=== PATIENT | male | born 1960 | race Caucasian/White ===

== ENCOUNTER 2019-05-25 14:32 | Inpatient (IN) ==
--- NOTE | 2019-05-25 17:19 | PROVIDER DOCUMENTATION ---
HPI-General Adult - General Chief Complaint: Extremity Pain Stated Complaint: LEG INFECTION-AF REFERRED Time Seen by Provider: 05/25/19 17:03 Source: patient, family Allergies/Adverse Reactions: Patient Allergies Allergy/AdvReac Type Severity Reaction Status Date / Time No Known Allergies Allergy Verified 05/25/19 16:58 Home Medications: Home Medication List Medication Instructions Recorded Confirmed Last Taken Type Warfarin [Coumadin] 5 mg PO DAILY 05/30/14 05/25/19 05/23/19 22:00 History - History of Present Illness -Gen Adult Nature of Presenting Problems: [id number] was referred by [facility] to r/o DVT of the RLE. He states that last week he cut his leg with a weed eater. On it began to itch, so he started scratching the area while at work. 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 He reports that yesterday, he noticed his leg beginning to swell. Today, he awoke with pain and swelling from the knee down to the ankle. He reports the most pain in his calf. , who is an ER nurse at , reports the patient was febrile with chills last night. She also reports a WBC of 13,000 from [facility]. Location of Pain/Injury: reports: lower extremity (right) Quality of Pain: reports: sharp Severity: reports: severe Onset/Duration: reports: 24 hours ago Timing: reports: getting worse Context/Activities at Onset: reports: recent trauma history (cut by weed eater) Associated Symptoms: reports: fever/chills Review of Systems - Adult - REVIEW OF SYSTEMS - ADULT Constitutional: reports: see HPI, chills, fever Eyes: reports: no symptoms reported Ears, Nose, Mouth & Throat: reports: no symptoms reported Cardiovascular: reports: no symptoms reported. denies: chest pain, syncope Respiratory: reports: no symptoms reported Gastrointestinal: reports: no symptoms reported Genitourinary: reports: no symptoms reported Musculoskeletal: reports: see HPI, other (RLE) Integumentary: reports: see HPI, skin sores/ulcer (RLE) Neurological: reports: no symptoms reported Psychiatric: reports: no symptoms reported Endocrine: reports: no symptoms reported Hematologic/Lymphatic: reports: no symptoms reported Allergic/Immunologic: reports: no symptoms reported All Other Systems: Reviewed and Negative Past History - Adult - PAST MEDICAL HISTORY-ADULT Review of Records: reports: Old Records Reviewed, Nursing Assessment Review, Medications Reviewed, Social history reviewed & non-contributory. Major Childhood Illnesses: reports: denies history Cardiovascular: reports: denies history Respiratory: reports: denies history Gastrointestinal: reports: denies history Obstetrical/Gynecological: reports: denies history Genitourinary: reports: denies history Musculoskeletal: reports: denies history Neurological: reports: denies history Endocrine/Immune: reports: bleeding disorder (clotting) Other Conditions: reports: denies history - PRIOR SURGERIES/PROCEDURES Surgical/Procedure History: reports: orthopedic (extremity) - IMMUNIZATION STATUS Childhood Immunizations: See Nurse Assessment Flu Vaccine: See Nurse Assessment - FAMILY HISTORY Family History: reviewed, not pertinent - SOCIAL HISTORY Smoking: denies Substance Use: denies Living Situation: family Physical Exam-General - PHYSICAL EXAM-ADULT Initial Vital Signs Reviewed: Yes - CONSTITUTIONAL General Appearance: alert, mild distress - EYES Eyes: PERRL/EOMI, pink conjunctivae - HEAD, EARS, NOSE, MOUTH & THROAT HENMT: moist mucous membranes - NECK Neck: full range of motion, supple - RESPIRATORY Respiratory: lungs clear, normal breath sounds - CARDIOVASCULAR Cardiovascular: regular rate, rhythm - LYMPHATIC Lymphatic: no adenopathy - MUSCULOSKELETAL Extremity: normal gait, erythema (RLE-calf to ankle), inflammation (calf-ankle RLE), tenderness (Calf-ankle RLE) - SKIN Integumentary: erythema (RLE), warm (RLE), other (sore to inner right ankle draining serous fluid) - NEUROLOGIC Neurologic: grossly normal - PSYCHIATRIC Psych/Mental Status: normal mood/affect, oriented x 3 Progress - PLAN OF CARE/RESULTS Progress/Plan/Lab Results: Vital Signs - 8 hr 05/25/19 14:36 Temperature 97.8 F Pulse Rate 89 Respiratory Rate 18 Blood Pressure 153/72 O2 Sat by Pulse Oximetry 95 Orders Category Date Time Status Venous U/S Left Leg Stat Ther 05/25/19 17:11 Ordered patient verbalizes an understanding of POC and agrees with treatment rendered here today. 7:00PM - received sign-out from Rush, assessed patient; CT pending at this time. Result Diagrams: 05/25/19 18:14 05/25/19 18:14 - REASSESSMENT Reassessment #1 Time Reassessed: 21:10 (CT confirms cellulitis, as well as pyomyositis. Given the patient's elevated WBC, as well as episode of fever here, the pt may require more than one dose of IV antibiotics. I discussed the case with the hospitalist, who agrees to accept the admission.) - ULTRASOUND (By Radiology) 1 US Study: Lower Ext (right) Impression: Normal - CHANGE OF SHIFT REPORT (ED Provider) 1 Report Given and Care Transferred to:: Dr Gardner Time of Transfer: 19:06 Items Pending: Labs, CT/MRI Results Departure - Departure Date of Disposition Decision: 05/25/19 Time of Disposition Decision: 22:02 DIAGNOSIS: Left leg cellulitis Disposition: ADMITTED INPATIENT 09 Certified Medical Emergency: Emergent Condition: Stable Referrals and Follow-Ups: Rey Elizalde MD [Primary Care Provider] - - Critical Care Note This patient required my direct & personal management of CC.: No Attestation - Physician/ HAYLEY Attestation Patient care was provided by Advanced Practice Provider:: Yes Advanced Practice Provider:: Rush Ritter Advanced Practice Provider documentation review:: The Mid-level provider documentation, treatment plan and medical decision making was reviewed by the physician who agrees with all treatment and medical decision making by the P. The physician spent face to face time with patient:: Yes Advanced Practice Provider documentation review:: Supervising physician onsite and consulted in the evaluation and care of this patient. The physician did have a face to face encounter with the patient.
[2019-05-25 18:35] LABS: INR 1.71; PROTIME 20.4 Seconds (11.0-16.0)
[2019-05-25 18:36] LABS: PTT 31.1 Seconds (22.3-41.8)
[2019-05-25 18:57] LABS: BASO# 0.03 X1000 (0.0-0.2); BASO% 0.2 % (0.0-0.8); EOS# 0.18 X1000 (0.0-0.7); EOS% 1.1 % (0.0-10.0); HEMATOCRIT 48.1 % (42.0-52.0); HEMOGLOBIN 16.2 g/dL (14.0-18.0); IMM GRAN# 0.06 X1000 (0.0-0.04); IMM GRAN% 0.4 % (0.0-0.5); LYMPH# 1.63 X1000 (1.2-3.4); LYMPH% 10.4 % (20.5-51.1); MCH 27.8 PG (27-31); MCHC 33.7 g/dL (33-37); MCV 82.5 FL (81-99); MPV 10.7 FL (7.4-10.4); NEUT# 11.61 X1000 (1.4-6.5); NEUT% 73.9 % (42.2-75.2); PLT 325 X1000 (130-400); RBC 5.83 XMIL (4.7-6.1); RDW 14.1 % (11.5-14.5); WBC 15.71 X1000 (4.8-10.8)
[2019-05-25] MEDS ORDERED: TYLENOL PO ONE (19:02)
[2019-05-25] MEDS ORDERED: VANCOMYCIN 1 GM/NS 1 GM/250 ML IVPB IV ONE (19:02)
[2019-05-25 19:25] LABS: AGAP 14; ALB/GLOB RATIO 1.1; ALBUMIN 4.4 g/dL (3.5-5.0); ALKALINE PHOSPHATASE 96 U/L (32-122); BUN 17 mg/dL (8-22); CALCIUM 9.5 mg/dL (8.8-10.2); CHLORIDE 96 mmol/L (98-107); COSMO 279; ESTIMATED GFR > 60; GLUCOSE 267 mg/dL (70-104); GOT 13 U/L (10-34); GPT 21 U/L (10-44); POTASSIUM 4.4 mmol/L (3.5-5.1); SODIUM 134 mmol/L (136-145); TCO2 24 mmol/L (25-35); TOTAL BILIRUBIN 0.87 mg/dL (0.20-1.00); TOTAL PROTEIN 8.5 g/dL (6.3-8.3)
--- NOTE | 2019-05-25 20:37 | Diag Imaging Result Doc PS360 ---
CT EXT LOWER RIGHT W/O CON - 05/25/2019 INDICATION: wound TECHNIQUE: CT of the lower legs COMPARISON: None FINDINGS: There is circumferential subcutaneous edema about the right lower leg. In addition, there is some intramuscular edema at the posterior medial muscle compartment involving the medial head of gastrocnemius. At the medial lower leg there is a small skin defect compatible with a wound. There are a couple of scattered soft tissue densities that are nonspecific, both in the subcutaneous and muscular tissues. There are also a few scattered densities on the left side. No fractures or bony erosions. No soft tissue gas. There is advanced osteoarthritis of the left knee. There is probably a large joint free body in the joint space anteriorly on the left side. IMPRESSION: 1. Edema of the subcutaneous tissues and the medial gastrocnemius head. This indicates cellulitis and possibly pyomyositis. No abscess or soft tissue gas. 2. No fractures. Severe osteoarthritis of the left knee. Electronically signed by Marcus Hines 05/25/2019 8:35 PM
[2019-05-25] MEDS ORDERED: ZOFRAN IV PRN (22:22)
[2019-05-25] MEDS ORDERED: VANCOMYCIN IV PER PHARMACY MISC SCH (22:30)
[2019-05-26] MEDS: ZOSYN 3.375 GM in NS 50 ML IV SCH ×4 (00:37→20:03)
[2019-05-26] MEDS: COUMADIN PO SCH ×2 (00:38→20:04)
[2019-05-26] MEDS: VANCOMYCIN 2,000 MG in NS 500 ML IV SCH ×2 (01:49→13:45)
--- NOTE | 2019-05-26 01:50 | HISTORY AND PHYSICAL ---
CHIEF COMPLAINT: Right lower extremity edema and pain. HISTORY OF PRESENT ILLNESS: The patient is a very pleasant 58-year-old male who has a known history of a sore on his right leg. States it has been there for several weeks. He has been working many more hours at work than usual. Notes that 2 days ago his right lower extremity became swollen, red and tender. States that he squeezed it until it finally popped and did have some bloody drainage. [place] better, went home. Got up the next day and went back to work. Unfortunately, it again began swelling and painful and his finally convinced him to come to the hospital today. He had he had actually gone to [facility] to rule out a DVT. He apparently had cut his leg on a weed eater last week creating the new wound. He wears tall boots and thick socks at work and he thinks this may have worsened it. ALLERGIES: No known drug allergies. MEDICATIONS: Coumadin 5 mg daily. PAST MEDICAL HISTORY: Has a known history of DVT. No other medical problems. Denies any diabetes, hypertension, high cholesterol. REVIEW OF SYSTEMS: States he has had fever in his leg but has not felt feverish elsewhere. He did have some chills, but notes that is better. Denies any cough, congestion, shortness of breath. Denies any dyspnea on exertion, PND, or orthopnea. Does have swelling bilateral lower extremities right greater than left. Has had drainage of his right lower extremity sore. He does have a sore on his ankle that has been there for several months. Denies any diarrhea, constipation, melena, hematochezia. FAMILY HISTORY: Noncontributory. SOCIAL HISTORY: He is . Does not smoke or drink. He is employed and has been working overtime lately. PHYSICAL EXAMINATION: VITAL SIGNS: Reviewed. Temperature 97.8 degrees, pulse 89, respiratory rate 18, BP 153/72, saturating 95% on room air. GENERAL: Patient is awake, alert. He is in no respiratory distress. He is very pleasant to talk with. HEENT: Normocephalic, atraumatic. VIKI. NECK: Supple. No JVD. CARDIOVASCULAR: Regular rate. No murmurs. CHEST: Clear, nonlabored. Obese. ABDOMEN: Soft, nondistended. EXTREMITIES: Moves all extremities. NEUROLOGIC: He has no focal neurologic weakness. SKIN: He is noted to have erythema on both lower extremities but much greater on his right. His right calf is sore to the touch, is definitely larger than his left calf. He is very warm. In fact, you can feel warm through his blue jeans. He has a cut on his ankle that he notes has been there for quite some time. He has been having difficulty healing it. He also has inflammation up to his calf. LABORATORIES: WBCs 15, hemoglobin and hematocrit 16 and 48. Sodium 134, glucose 267. ASSESSMENT: 1. Right lower extremity cellulitis. 2. Leukocytosis. 3. Hyperglycemia in a patient with no known history of diabetes. 4. Elevated blood pressure in the patient with no previous diagnosis of hypertension. 5. Obesity. 6. History of deep venous thrombosis. PLAN: We are going to admit patient to the hospital, place him on antibiotics, vancomycin and Rocephin. He has good pulses distally bilateral lower extremities. His CT did demonstrate cellulitis and possible pyomyositis. Certainly we will need to keep an eye on that. We are going to place him on sliding scale insulin, pattern Accu-Cheks, check an A1c, recheck his labs in the a.m. and we will follow. cc: MD Rey Buitrago MD
[2019-05-26] MEDS: TYLENOL PO PRN ×3 (03:59→17:51)
[2019-05-26] MEDS: HUMALOG SUBQ SCH ×4 (07:50→21:57)
[2019-05-26 07:52] LABS: HEMATOCRIT 40.1 % (42.0-52.0); HEMOGLOBIN 13.5 g/dL (14.0-18.0); MCH 28.1 PG (27-31); MCHC 33.7 g/dL (33-37); MCV 83.5 FL (81-99); MPV 11.1 FL (7.4-10.4); RBC 4.8 XMIL (4.7-6.1); WBC 14.37 X1000 (4.8-10.8)
[2019-05-26] MEDS ORDERED: FLU VACCINE IM ONE (08:05)
[2019-05-26 08:12] LABS: HEMOGLOBIN A1C 9.3 % (4.8-6.0)
[2019-05-26 08:24] LABS: AGAP 12; ALB/GLOB RATIO 0.9; ALBUMIN 3.3 g/dL (3.5-5.0); ALKALINE PHOSPHATASE 91 U/L (32-122); BUN 17 mg/dL (8-22); CALCIUM 8.4 mg/dL (8.8-10.2); CHLORIDE 101 mmol/L (98-107); COSMO 282; CREATININE 1.1 mg/dL (0.7-1.2); ESTIMATED GFR > 60; GLUCOSE 314 mg/dL (70-104); GOT 13 U/L (10-34); GPT 15 U/L (10-44); POTASSIUM 4.3 mmol/L (3.5-5.1); SODIUM 134 mmol/L (136-145); TCO2 21 mmol/L (25-35); TOTAL BILIRUBIN 0.77 mg/dL (0.20-1.00); TOTAL PROTEIN 6.8 g/dL (6.3-8.3)
--- NOTE | 2019-05-26 13:05 | PROGRESS NOTE ---
DATE: 05/26/2019 Mr. Le was admitted yesterday with right lower extremity edema and pain. He is a 58-year-old patient of Dr. Rey Elizalde. He has a known history of sore on his right leg. States it has been there for several weeks and has been working more hours than usual. Noticed that 2 days ago his right lower extremity became swollen and tender. States that he squeezed it and it finally popped and it did have some bloody drainage. [place] better, went home, got up the next day, went back to work. Unfortunately, it became swollen and painful. His convinced him to come to the hospital. He went to [facility] to rule out DVT and apparently cut his leg on a weed eater last week, creating a new wound. He wears tall boots and thick socks at work and thinks he may have worsened it. PAST MEDICAL HISTORY: No known history of DVT and was admitted with right lower extremity cellulitis, leukocytosis, hyperglycemia, no known history of diabetes in the past, elevated blood pressure, previous diagnosis of hypertension, mild obesity, history of deep venous thrombosis. Put him on some antibiotics and vancomycin, Rocephin. He seemed to have good peripheral pulses. PHYSICAL EXAMINATION: Exam today, he did get some sleep. Temp was 100.1 degrees, pulse 70, respirations 16, blood pressure 139/75. Pupils are equal and round. Lungs are clear in all lung bender. Cardiovascular regular rate without murmur or S3. Abdomen is soft. Skin is warm and dry. Urine output was 2000 mL. Blood sugars 250 and 281, last 2 consecutive . ASSESSMENT AND PLAN: 1. Lower extremity CT showed edema, subcutaneous tissues, medial gastrocnemius head and some cellulitis, possible pyomyositis. No abscess or soft tissue gas. No fractures. Severe osteoarthritis of the left knee. The patient states he feels a little bit better. Review of his orders, he is on vancomycin 2 g IV q. 12 hours and Zosyn 3.375 g IV q. 6 hours. 2. Appears to have new onset of diabetes, probably related to the infection, hyperglycemia. He would like to talk to Dr. Elizalde before initiating anything in the way of insulin or medications, but I encouraged him to let us try and get his sugar down to help the healing process. 3. Hypertension. Blood pressure looks good. 4. Electrolytes and renal function good. Creatinine is 1.1. Hemoglobin A1c was 9.3. cc: MD Rey Godinez MD
[2019-05-27] MEDS: TYLENOL PO PRN ×3 (00:01→21:27)
[2019-05-27] MEDS: ZOSYN 3.375 GM in NS 50 ML IV SCH ×2 (00:35→06:31)
[2019-05-27 00:38] LABS: BASO# 0.02 X1000 (0.0-0.2); BASO% 0.1 % (0.0-0.8); EOS# 0.19 X1000 (0.0-0.7); EOS% 1.4 % (0.0-10.0); HEMATOCRIT 40.7 % (42.0-52.0); HEMOGLOBIN 13.8 g/dL (14.0-18.0); IMM GRAN# 0.06 X1000 (0.0-0.04); IMM GRAN% 0.4 % (0.0-0.5); LYMPH# 1.38 X1000 (1.2-3.4); LYMPH% 9.9 % (20.5-51.1); MCH 27.8 PG (27-31); MCHC 33.9 g/dL (33-37); MCV 82.1 FL (81-99); MONO# 1.49 X1000 (0.11-0.59); MONO% 10.7 % (1.7-9.3); MPV 10.7 FL (7.4-10.4); NEUT# 10.82 X1000 (1.4-6.5); NEUT% 77.5 % (42.2-75.2); PLT 253 X1000 (130-400); RBC 4.96 XMIL (4.7-6.1); RDW 13.5 % (11.5-14.5); WBC 13.96 X1000 (4.8-10.8)
[2019-05-27 00:53] LABS: INR 1.48; PROTIME 18.2 Seconds (11.0-16.0)
[2019-05-27 00:54] LABS: PTT 35.5 Seconds (22.3-41.8)
[2019-05-27 00:59] LABS: AGAP 10; ALB/GLOB RATIO 1.1; ALBUMIN 3.3 g/dL (3.5-5.0); ALKALINE PHOSPHATASE 74 U/L (32-122); BUN 14 mg/dL (8-22); CALCIUM 8.5 mg/dL (8.8-10.2); CHLORIDE 100 mmol/L (98-107); CK PROFILE 130 U/L (24-204); COSMO 274; CREATININE 1.2 mg/dL (0.7-1.2); ESTIMATED GFR > 60; GLUCOSE 224 mg/dL (70-104); GOT 19 U/L (10-34); GPT 18 U/L (10-44); POTASSIUM 4.1 mmol/L (3.5-5.1); SODIUM 133 mmol/L (136-145); TCO2 23 mmol/L (25-35); TOTAL BILIRUBIN 0.77 mg/dL (0.20-1.00); TOTAL PROTEIN 6.2 g/dL (6.3-8.3)
[2019-05-27] MEDS: VANCOMYCIN 2,000 MG in NS 500 ML IV SCH (01:10)
[2019-05-27 01:16] LABS: URINE SOURCE CLEAN CATCH
[2019-05-27 01:19] LABS: BILIRUBIN URINE NEGATIVE (NEGATIVE); BLOOD URINE NEGATIVE (NEGATIVE); COLOR YELLOW; GLUCOSE URINE >1000 mg/dL (NEGATIVE); KETONE URINE TRACE mg/dL (NEGATIVE); LEUKOCYTES URINE NEGATIVE (NEGATIVE); NITRITE URINE NEGATIVE (NEGATIVE); PROTEIN URINE 50 mg/dL (NEGATIVE); SP GRAVITY URINE 1.018; TURBIDITY URINE CLEAR (CLEAR); UROBILINOGEN URINE NORMAL (NORMAL)
[2019-05-27 01:23] LABS: UR EPITHELIAL CELLS <10 /HPF (<10); URINE BACTERIA NEGATIVE /HPF; URINE CASTS NONE SEEN; URINE CRYSTALS NONE SEEN; URINE RBC <10 /HPF (<10); URINE SMALL ROUND CELLS NONE SEEN; URINE WBC <10 /HPF (<10); URINE YEAST PRESENT
--- NOTE | 2019-05-27 06:22 | Diag Imaging Result Doc PS360 ---
CHEST-1 VIEW - 05/26/2019 INDICATION: sepsis protocol COMPARISON: None FINDINGS: The lungs are normally expanded and clear. Heart size and mediastinal contours are normal. No pneumothorax or pleural effusion. There is a calcified granuloma at the left lung base. IMPRESSION: Negative exam. Electronically signed by Marcus Hines 05/27/2019 6:20 AM
[2019-05-27] MEDS: HUMALOG SUBQ SCH ×4 (07:11→21:27)
[2019-05-27] MEDS ORDERED: VANCOMYCIN IV PER PHARMACY MISC SCH (08:30)
[2019-05-27] MEDS: KEFZOL 2 GM/D5W 2 GM/50 ML IVPB IV SCH ×2 (09:58→17:22)
[2019-05-27] MEDS: COUMADIN PO SCH (21:27)
--- NOTE | 2019-05-27 21:36 | INFECTIOUS DISEASE CONSULT REP ---
DATE: 05/27/2019 CONCLUSION: The patient has cellulitis and possible myositis of the right leg. Culture from the leg is growing an oxacillin sensitive Staph aureus. RECOMMENDATIONS: I have discontinued vancomycin and Zosyn and placed the patient on Ancef 2 g IV every 8 hours. Some of the side effects of Ancef including rash and diarrhea have been explained to the patient who agrees with treatment. I have ordered that the foot of the patient's bed should remain elevated continuously with the manual gatch. Also, I have ordered for the patient to elevate his legs for as long as possible. PRESENT ILLNESS: The patient developed swelling of the right leg associated with fever and chills. A culture from the leg is growing oxacillin sensitive Staph aureus. CT scan of the leg shows cellulitis and possible myositis. [place] [address], hemoglobin 13.8 and platelet count 253,000. Creatinine is 1.2. GFR is greater than 60. Liver function studies are normal. Urinalysis showed yeast. Blood culture is negative. The chest x- ray shows no infiltrates. CT scan of the right leg shows cellulitis and possible myositis. PAST MEDICAL HISTORY/REVIEW OF SYSTEMS: Eyes and ears: No trouble hearing or seeing. Neck: No stiffness. Lungs: No cough or shortness of breath. Cardiac: No chest pain or palpitations. Gastrointestinal: No nausea, vomiting, or diarrhea. Genitourinary: No dysuria or flank pain. Neurologic: No seizures. No loss of motor or sensory function. PREVIOUS HOSPITALIZATIONS AND OPERATIONS: He has had an injury to his right leg, which required placing a skin graft on the leg. The patient had placement of a split-thickness skin graft after being kicked in the right leg by a horse. MEDICAL DISEASES: Patient tells me that he has never been diagnosed with diabetes; however, when he came in the hospital, his glucose was elevated. The patient has had right leg deep venous thrombosis. Medical diseases negative for pneumonia and UTI. FAMILY HISTORY: Positive for an aneurysm of the head. Negative for diabetes or hypertension. SOCIAL HISTORY: The patient lives in [place]. He is . He has dogs for pets. The patient does not smoke cigarettes, drink alcoholic beverages or abuse drugs. He is an furniture manager. ALLERGIES: He has no known drug allergies. HOME MEDICATIONS: Coumadin is the only home medication the patient is on. PHYSICAL EXAMINATION: Vital Signs: Temperature is 98.6 degrees, pulse 64, respirations 16, blood pressure is 134/80. He is 6 feet 7 inches tall, weighs 270 pounds. General: This is an obese, middle-aged male. He is in no acute distress. Head/eyes/ears/nose/throat: He can hear my spoken words and see near objects. He does not have any white patches on his tongue. Neck: No meningismus. Lungs: Clear to auscultation. Cardiovascular: Heart rate is regular. Abdomen: Soft and nontender. Extremities: The patient's left leg has some edema and some brownish discoloration. The patient's right leg is more swollen. It is more erythematous and it has an area on the medial part of the leg that has an eschar. Also, the leg is tender. Neurologic: Patient is alert. He can move his extremities. There is no tremor. His sensation is intact to touch. His memory as regarding his medical history was intact. Thank you for the consult. cc: MD Rey Amor MD MTDD
--- NOTE | 2019-05-27 23:15 | PROGRESS NOTE ---
DATE: 05/27/2019 SUBJECTIVE: Patient's chart was reviewed. In summary, patient presented to the emergency department with right lower extremity edema and pain. Full evaluation was pursued. CT scan of the lower extremity revealed edema of the subcutaneous tissues in the medial gastrocnemius head. This indicates cellulitis and possibly pyomyositis. No abscess or soft tissue gas was identified. The patient's laboratory data was significant for a leukocytosis as well as hyperglycemia. The patient was placed as an inpatient. Zosyn and vancomycin therapy were initiated. Wound culture was obtained. Throughout the weekend the patient's overall condition has slowly improved. Overnight however, patient spiked a temperature to 102.8. This morning patient continued to complain of leg pain. P.o. intake was adequate. He denied systemic symptoms associated. Throughout the day today patient states he did reasonably well. Pain remained controlled. This evening he does note decreasing edema as well as decreasing pain. The patient's antibiotics have been adjusted as blood cultures returned with methicillin sensitive Staph aureus. Dr. Payne has been consulted for further evaluation and management. OBJECTIVE: T-max 102.8 degrees, heart rate 63 to 77, respirations 16 to 20, blood pressure 133 to 147 over 69 to 80.General: Well nourished, well developed, no acute distress. Cardiovascular: Regular rate and rhythm. No significant murmurs, rubs, or gallops. Pulmonary: Clear to auscultation bilaterally. Abdomen: Soft, nontender, nondistended. Positive bowel sounds. Extremities: Moves all extremities well. No significant clubbing, cyanosis, or edema on the left. Significant erythema and edema to the right lower extremity. Several eschar are present. Localized fever is identified. Dermatologic: Evaluation reveals above changes to the right lower extremity as well as venous stasis changes bilaterally. LABORATORY DATA: White blood cell count 13.96, hemoglobin 13.8, hematocrit 40.7, platelet count 253,000. PT 18.2, INR is 1.48, PTT is 35.5, sodium 133, potassium 4.1, chloride 100, bicarb 23, BUN 14, creatinine 1.2, glucose 224, calcium 8.5, total bilirubin 0.77, total protein 6.2, albumin 3.3, alkaline phosphatase 74, AST 19, ALT 18, CK total 130. ASSESSMENT AND PLAN: 1. Right lower extremity cellulitis versus pyomyositis-I appreciate Dr. Payne' consultation. A wound culture has revealed a methicillin sensitive Staphylococcus aureus. Is currently being treated with cefazolin. This evening clinically patient [*] he continues to spike fevers. At this point, we will continue antibiotic intervention. We will consider whether further radiologic imaging including MR is necessary to determine if abscess formation is present. I appreciate Dr. Payne' consultation. 2. Diabetes-unfortunately, patient's blood sugars remained elevated. Hemoglobin A1c suggests a prolonged elevation of his glucose. Patient would benefit from the initiation of metformin therapy. As I am unsure whether we will pursue further radiologic imaging, we will continue only sliding scale insulin. We will plan to start metformin prior to discharge home. 3. Hypertension-patient's blood pressure is slightly elevated. We will follow this for now. We will consider adding an ARB/LISA inhibitor prior to discharge. 4. Disposition-at this point, patient continues to require snf care in a hospital setting. Will plan discharge home once appropriate. cc: Rey Elizalde MD
[2019-05-28] MEDS: KEFZOL 2 GM/D5W 2 GM/50 ML IVPB IV SCH ×2 (02:25→08:35)
[2019-05-28] MEDS: HUMALOG SUBQ SCH ×4 (06:33→21:39)
[2019-05-28] MEDS: NAFCIL 2 GM in NS 100 ML IV SCH ×2 (13:53→21:34)
--- NOTE | 2019-05-28 14:54 | INFECTIOUS DISEASE PROGRESS NO ---
DATE: 05/28/2019 PRESENT ILLNESS: The patient has oxacillin-sensitive Staph aureus, leg cellulitis, and possible myositis of the right leg. MEDICATIONS: The patient is receiving Ancef 2 grams IV every 8 hours. PHYSICAL EXAMINATION: Vital Signs: Earlier temperature is 102 degrees, now it is 100, pulse 63, respirations 18, blood pressure 140/74. General: This is a somewhat ill-appearing, middle-aged male. He is in no acute distress. HEENT: He can hear my spoken words and see near objects. There is no drainage coming from his nose or ears. He does not have any white patches on his tongue. Neck: No pain with movement. Lungs: Clear to auscultation. Cardiovascular: Heart rate is regular. Abdomen: Soft and nontender. Extremities: The patient's right leg remains erythematous and somewhat purplish in color also, and it is swollen and tender. Overall, the patient thinks that it does look a little bit better than it did a day or two ago. Neurologic: The patient is alert. He can move his extremities. There is no tremor. IMAGING AND LABORATORY DATA: There is no new lab or x-ray for today. The patient's blood cultures have not turned positive as of yet. ASSESSMENT AND PLAN: I am going to discontinue Ancef, and put the patient on nafcillin, and also I mentioned to the patient how important it is to elevate his leg as he has been doing. CO-MORBIDITIES: The patient said he did not have diabetes, but when he came into the hospital, his glucose was quite elevated. In part, this may be due to the fact that the patient has leg cellulitis and possible myositis, but I suspect the patient is a true diabetic. cc: MD Rey Amor MD
--- NOTE | 2019-05-28 19:37 | PROGRESS NOTE ---
DATE: 05/28/2019 SUBJECTIVE: Upon my arrival this morning, patient was lying in bed. There was noted to be some decreased swelling and erythema to the right lower extremity. Overnight, he had experienced another spike in his temperature. He was afebrile upon my arrival. Throughout the day today, patient increased his activity. Initially, he noted significant pain in his right gastrocnemius muscle upon ambulation. With more activity, this pain improved, but did not resolve. This afternoon, patient was again resting in bed. His p.o. intake had been adequate through the day. He had had no further temperature spikes. He denies nausea, vomiting, shortness of breath, or chest discomfort. OBJECTIVE: Vital signs: T-max 102.5 degrees, heart rate 63 to 74, respirations 16 to 20, blood pressure 132 to 147/68 to 94. General: Well-nourished, well-developed in no acute distress. Cardiovascular: Regular rate and rhythm. No significant murmurs, rubs, or gallops. Pulmonary: Clear to auscultation bilaterally. Abdomen: Soft, nontender, nondistended. Positive bowel sounds. Extremities: Moves all extremities well. No significant clubbing, cyanosis, or edema on the left. There is venous stasis changes. Right lower extremity with significant erythema, swelling, and localized fever. This has improved from yesterday, although not to baseline. LABORATORY DATA: None. ASSESSMENT AND PLAN: 1. Right lower extremity cellulitis versus pyomyositis--I appreciate Dr. Payne' consultation. Antibiotics were transitioned to nafcillin today. Thus far, patient has tolerated well. Erythema and induration are improving, although remain impressive. At this point, I suspect this represents a cellulitis; however, with the consistent spikes in fever, I am concerned there could be an underlying abscess. We will continue antibiotics for now. Should patient again spiked a temp this evening, we will plan further imaging including an MRI to rule out abscess formation. 2. Diabetes--we will continue patient on sliding scale insulin. Once surgical intervention/ [*]imaging and evaluation has been ruled out, we will plan to initiate metformin therapy. The patient does appear to have had elevated blood sugars prior to this infection as his hemoglobin A1c is elevated. 3. Hypertension--patient's blood pressure remains modestly elevated. At this point, we will add a low-dose LISA inhibitor as this likely will be beneficial long-term with underlying diabetes. 4. Anticoagulation--we will continue patient on Coumadin therapy. We will check an INR in the a.m. We will adjust if necessary. 5. Disposition--at this point, patient continues to require snf care in a hospital setting. We will plan discharge home once appropriate. cc: Rey Elizalde MD
[2019-05-28] MEDS: PRINIVIL PO SCH ×2 (21:34→21:38)
[2019-05-28] MEDS: COUMADIN PO SCH (21:34)
[2019-05-29] MEDS: NAFCIL 2 GM in NS 100 ML IV SCH ×7 (01:05→22:10)
[2019-05-29] MEDS: HUMALOG SUBQ SCH ×4 (06:22→22:10)
[2019-05-29 06:55] LABS: BASO# 0.04 X1000 (0.0-0.2); BASO% 0.5 % (0.0-0.8); EOS# 0.91 X1000 (0.0-0.7); EOS% 11.6 % (0.0-10.0); HEMATOCRIT 39.5 % (42.0-52.0); HEMOGLOBIN 13.3 g/dL (14.0-18.0); IMM GRAN# 0.03 X1000 (0.0-0.04); IMM GRAN% 0.4 % (0.0-0.5); LYMPH% 17.9 % (20.5-51.1); MCH 27.7 PG (27-31); MCHC 33.7 g/dL (33-37); MCV 82.1 FL (81-99); MONO# 1.01 X1000 (0.11-0.59); MONO% 12.9 % (1.7-9.3); MPV 10.9 FL (7.4-10.4); NEUT# 4.44 X1000 (1.4-6.5); NEUT% 56.7 % (42.2-75.2); PLT 265 X1000 (130-400); RBC 4.81 XMIL (4.7-6.1); RDW 13.5 % (11.5-14.5); WBC 7.83 X1000 (4.8-10.8)
[2019-05-29 07:02] LABS: INR 2.23; PROTIME 25.3 Seconds (11.0-16.0)
[2019-05-29 07:07] LABS: AGAP 11; ALB/GLOB RATIO 0.8; ALBUMIN 2.8 g/dL (3.5-5.0); ALKALINE PHOSPHATASE 89 U/L (32-122); BUN 13 mg/dL (8-22); CALCIUM 8.5 mg/dL (8.8-10.2); CHLORIDE 105 mmol/L (98-107); COSMO 283; ESTIMATED GFR > 60; GLUCOSE 225 mg/dL (70-104); GOT 18 U/L (10-34); GPT 21 U/L (10-44); POTASSIUM 4.2 mmol/L (3.5-5.1); SODIUM 138 mmol/L (136-145); TCO2 22 mmol/L (25-35); TOTAL BILIRUBIN 0.72 mg/dL (0.20-1.00); TOTAL PROTEIN 6.5 g/dL (6.3-8.3)
--- NOTE | 2019-05-29 11:28 | Diag Imaging Result Doc PS360 ---
MRI LOW EXTREMTY WO AND W/CONTRAST-RIGHT - 05/29/2019 INDICATION: Persistent right LE cellulitis/ poss. pyomyositis TECHNIQUE: MRI right lower leg without and with intravenous contrast COMPARISON: CT from 05/25/2019 FINDINGS: There are a couple of superficial subcutaneous fluid collections at the posterior medial proximal lower leg. These are circumscribed and demonstrate rim enhancement. The largest measures 6 x 2.2 cm. This is aligned parallel to the leg itself. This is extremely superficial extending essentially to the skin surface. There is some increased signal and contrast enhancement of the posterior medial muscle compartment, involving the medial head of the gastrocnemius. Bone marrow signal is normal. Soft tissues are otherwise clear. IMPRESSION: 1. Superficial subcutaneous abscess in the proximal medial posterior right lower leg just below the knee. 2. Myositis of the medial head of the gastrocnemius. No intramuscular collections. Electronically signed by Marcus Hines 05/29/2019 11:26 AM
--- NOTE | 2019-05-29 14:31 | INFECTIOUS DISEASE PROGRESS NO ---
DATE: 05/29/2019 PRESENT ILLNESS: Mr. Escalera has a right lower extremity oxacillin-sensitive staph aureus cellulitis with superficial subcutaneous abscesses as seen on MRI, as well as myositis of the gastrocnemius. MEDICATIONS: He is receiving nafcillin 2 g IV every 4 hours. PHYSICAL EXAMINATION: Vital Signs: Temperature is 98.4 degrees, pulse rate 66, respiratory rate 18, blood pressure 138/76, O2 saturation is 99% on room air. General: This is a somewhat ill- appearing, middle-aged gentleman. He is lying in bed, currently in no acute distress. HEENT: Atraumatic, normocephalic. Oral mucous membranes are pink and moist. Conjunctivae are pink. Neck: Supple. Trachea is midline. Cardiovascular: Heart rate and rhythm are regular. Normal sinus rhythm on the monitor. Respiratory: Lung sounds are clear to auscultation bilaterally. No work of breathing is noted. Abdomen: Soft, obese and nontender. Bowel sounds are active. Integumentary: Skin is warm and dry. There is erythema to the right calf, which is swollen and tender, particularly to the posterior calf below the knee. Neurologic: He is awake, alert, oriented, able to ambulate independently. LABORATORY AND X-RAY: Today his white count is 7.83, hemoglobin 13.3, platelet count 265,000. Creatinine is 1. Estimated GFR is greater than 60. Total bilirubin is 0.72, AST 18, ALT 21, alkaline phosphatase 89. His right ankle grew an oxacillin-sensitive Staph aureus. Blood cultures this admission have been sterile. Lower extremity MRI done today shows superficial subcutaneous abscesses to the right lower leg below the knee as well as myositis of the medial head of the gastrocnemius. ASSESSMENT AND PLAN: Mr. Escalera has some superficial abscesses with cellulitis to the right lower extremity as well as a myositis. He is growing an oxacillin-sensitive Staph aureus and is receiving nafcillin, which we will continue at this time. Dr. Payne has spoken with Dr. Elizlade who will be speaking to a surgeon to look at the possibility of draining these wounds. The patient is anxious to go home, and our plan is to give him oral Keflex when he is ready to be discharged. These plans have been discussed with and recommended by Dr. Payne. COMORBIDITIES: For Mr. Escalera include a new diagnosis of diabetes and Coumadin administration for history of DVT. Dictated by MAKAYLA Rawls for Brian Payne MD cc: MD Rey Amor MD MTDD
--- NOTE | 2019-05-29 14:58 | PROGRESS NOTE ---
DATE: 05/29/2019 SUBJECTIVE: Upon my arrival this morning, patient was sitting upright in bed. Overnight, patient states he did reasonably well. His temperature continued to rise, although not in the febrile range. He has good p.o. intake. He rested reasonably well. This morning the patient continues to have pain primarily in the region of the right gastrocnemius muscle. On examination, there was a more localized area of pain. The patient was sent for an MRI of the right lower extremity. Superficial subcutaneous abscess in the proximal medial posterior right lower leg just below the knee was identified. Myositis of the medial head of the gastrocnemius was also noted. Dr. Andrade has been consulted. The patient denies nausea, vomiting, shortness of breath, or chest discomfort. OBJECTIVE: Vital Signs: T-max 100.1 degrees, heart rate 64 to 70, respirations 14 to 20, and blood pressure 135 to 143 over 76 to 81. General: Well-nourished and well developed in no acute distress. Cardiovascular: Regular rate and rhythm. No significant murmurs, rubs, or gallops. Pulmonary: Clear to auscultation bilaterally. Abdomen: Soft, nontender, and nondistended. Positive bowel sounds. Extremities: Moves all extremities well. Left lower extremity without clubbing, cyanosis, or edema. Venous stasis changes are present. Right lower extremity with significant erythema and induration, improved from previous. There is a localized area of pain in the posterior calf. No clubbing, cyanosis or edema. Dermatologic: Evaluation is as described. LABORATORY DATA: White blood cell count 7.83, hemoglobin 13.3, hematocrit 39.5, and platelet counts 265,000. Sodium 138, potassium 4.2, chloride 105, bicarb 22, BUN 13, creatinine 1.0, glucose 225, and calcium 8.5. Total bilirubin 0.72. Total protein 5.5, albumin 2.8, alkaline phosphatase 89, AST 18, and ALT 21. ASSESSMENT AND PLAN: 1. Right lower extremity cellulitis with associated abscess formation-Wound culture has revealed methicillin sensitive Staph aureus. MRI, as described has noted a localized abscess. With the patient's prolonged recovery with appropriate antibiotics, we will consult Dr. Andrade for surgical intervention. We will follow this. I appreciate Dr. Payne' consultation as well. 2. Diabetes-Patient's blood sugars remain elevated. We will continue sliding scale insulin for now. We will plan to initiate metformin therapy prior to discharge. 3. Hypertension-Patient's blood pressure remains marginally elevated. Lisinopril was added yesterday evening. We will follow this. 4. Disposition-At this point, patient continues to require intermediate care in a hospital setting. We will plan discharge home once appropriate. cc: Rey Elizalde MD
[2019-05-29] MEDS ORDERED: VITAMIN K PO ONE ×2 (16:53→17:33)
[2019-05-29] MEDS: TYLENOL PO PRN (20:08)
[2019-05-29] MEDS: PRINIVIL PO SCH (20:11)
--- NOTE | 2019-05-29 20:59 | CONSULTATION ---
DATE OF CONSULTATION: 05/29/2019 HISTORY OF PRESENT ILLNESS: Mr. Mando Escalera is a 58-year-old white male patient of Dr. Rey Elizalde. I was asked to evaluate him for a soft tissue abscess involving his right leg. Mr. Mando Escalera has been hospitalized since 05/25/2019 with cellulitis involving his right leg. He has been treated with IV antibiotics and he has developed what appears to be an abscess posteriorly proximal right leg, and we were asked to evaluate him for incision and drainage. He does have a history of DVT and has chronic venous insufficiency. A lower extremity MRI performed today does suggest an abscess posteriorly right leg. PAST MEDICAL HISTORY: DVT, history of hypercoagulability. He is on chronic Coumadin. MEDICATIONS: Prinivil, nafcillin, Coumadin. ALLERGIES: No known drug allergies. SOCIAL HISTORY: He is to a nurse, nonsmoker. REVIEW OF SYSTEMS: A 14-point review of systems was performed and was essentially negative except for the history of present illness. FAMILY HISTORY: Has been reviewed and is noncontributory. PHYSICAL EXAMINATION: General: Mr. Mando Escalera appears to be a healthy middle-aged, white male. He is in no acute distress. HEENT exam: No jaundice. No oral lesions. Neck: No cervical or supraclavicular lymphadenopathy. Heart: Has a regular rate. Lungs: Clear to auscultation and percussion bilaterally. Abdomen: Soft, nontender without palpable mass. No costovertebral tenderness. Rectal exam was not performed. He does have palpable femoral pulses. He has cellulitis and chronic venous insufficiency changes involving his right lower extremity. He has what appears to be a soft tissue abscess, proximal posterior right leg. His left leg appears to be normal. Neurologically, there are no focal deficits. IMAGING: I reviewed his MRI of his right lower extremity, which does suggest an abscess in this area. He is on chronic Coumadin, and he has eaten so we will plan to perform incision and drainage of his right leg tomorrow, and I have discussed this with him and his primary care physician, Dr. Rey Elizalde. We will hold his Coumadin tonight. Dr. Elizalde will also give him a dose of vitamin K. cc: MD Rey Gastelum MD
[2019-05-30] MEDS: NAFCIL 2 GM in NS 100 ML IV SCH ×6 (03:00→23:31)
[2019-05-30] MEDS: HUMALOG SUBQ SCH ×4 (06:56→22:46)
[2019-05-30 07:15] LABS: INR 1.56
[2019-05-30] MEDS ORDERED: SENSORCAINE 0.25%/EPI 1:200,000 ONE (08:02)
[2019-05-30] MEDS ORDERED: NUPERCAINAL ONE (08:02)
--- NOTE | 2019-05-30 08:40 | Extremity Venous Study ---
PROCEDURE NAME: Venous U/S Right Leg - 05/25/2019 REQUESTING PROVIDER: Riya in the Emergency Department. PROSPECT MANAGER: Gracie. INDICATIONS: Rule out DVT. EQUIPMENT: [employer] Vivid E9 ultrasound system with a 9 L-D transducer. FINDINGS: Images of the right lower extremity venous systems were obtained in both sagittal and transverse planes. Doppler was used to evaluate veins for spontaneity, phasicity, respiratory excursion, and digital augmentation. RESULTS: Chronic appearing clot in the mid distal superficial femoral vein with flow noted around it. There appears to be no other acute abnormality noted. INTERPRETATION: Chronic appearing clot in the right mid superficial femoral vein to the distal superficial femoral vein, but flow is noted around. cc: MD Rey Landa MD
[2019-05-30] MEDS: HYDROCORTISONE 0.5% CREAM TOP PRN (09:19)
[2019-05-30] MEDS ORDERED: DIPRIVAN 1% ONE (10:53)
[2019-05-30] MEDS ORDERED: VERSED ONE (10:53)
[2019-05-30] MEDS ORDERED: FENTANYL ONE (10:54)
[2019-05-30] MEDS ORDERED: NS 1,000 ML ONE (12:49)
--- NOTE | 2019-05-30 15:14 | OPERATIVE NOTE ---
PROCEDURE DATE: 05/30/2019 PREOPERATIVE DIAGNOSIS: Soft tissue infection posterior right leg. POSTOPERATIVE DIAGNOSIS: Soft tissue infection posterior right leg. PRINCIPAL PROCEDURE: Incision and drainage of soft tissue abscess right posterior leg with debridement of infected and necrotic tissue including skin and subcutaneous tissue. SURGEON: Jaqueline Andrade MD ANESTHESIA: General. ESTIMATED BLOOD LOSS: 10 mL. DRAINS: None. INDICATIONS: Mr. Mando Escalera is a 58-year-old white male who is a diabetic and he was admitted with cellulitis involving his right lower extremity. He has been on IV antibiotics, but he has been slow to improve and clinically and by x-ray he has an abscess involving the posterior right leg. Incision and drainage was recommended. FINDINGS: He had dark, bloody-appearing, thick purulence removed from the subcutaneous space posterior right leg. DESCRIPTION OF PROCEDURE: The patient was brought to the operating room, placed supine, received general anesthesia, and was intubated. Then we placed him in the prone position and his right lower extremity was prepped and draped in a sterile field. I made a longitudinal incision along the area of palpable fluctuance the posterior right leg using a 15 blade scalpel and the purulence was drained. We took cultures and the pus was removed using suction. I used forceps and the Stevenson scissors to debride the necrotic infected skin and subcutaneous tissue. Then I thoroughly irrigated out our abscess cavity and made sure that all purulence was drained. I packed it open with 1/2 inch iodoform gauze followed by a dry dressing and a Kerlix wrap. He tolerated the procedure well with plans for him to go the recovery room and then return to the floor. cc: MD Rey Gastelum MD
[2019-05-30] MEDS ORDERED: NS 500 ML IV SCH (18:45)
[2019-05-30] MEDS: TYLENOL PO PRN (20:18)
[2019-05-30] MEDS: PERIDEX MT SCH (20:18)
[2019-05-30] MEDS ORDERED: COUMADIN PO SCH (21:00)
--- NOTE | 2019-05-30 22:45 | PROGRESS NOTE ---
DATE: 05/30/2019 SUBJECTIVE: Upon my arrival this morning, patient states he was feeling reasonably well. He continued to have significant fullness in his posterior calf. Surgical intervention was pursued later in the morning. Patient tolerated this quite well. An I and D was performed with cultures drawn. This evening, upon my arrival, patient states he is feeling reasonably well. He continues to have some pain in the right posterior calf. He denies fevers, chills, nausea, vomiting, shortness of breath, or chest discomfort. OBJECTIVE: Vital signs: T-max 98.5 degrees, heart rate 56 to 96, respirations 14 to 20, blood pressure 137 to 165 over 61 to 92. General: Well nourished, well developed, in no acute distress. Cardiovascular: Regular rate and rhythm. No significant murmurs, rubs, or gallops. Pulmonary: Clear to auscultation bilaterally. Abdomen: Soft, nontender, nondistended. Positive bowel sounds. Extremities: Moves all extremities well. No significant clubbing, cyanosis or edema. Bilateral lower extremity venous stasis changes. Dermatologic evaluation: Reveals erythema and improving swelling in the right lower extremity. Posterior calf is dressed after surgical intervention. LABORATORY DATA: PT 19.0. INR is 1.56. ASSESSMENT AND PLAN: 1. Right lower extremity cellulitis with associated abscess formation--As above, initial wound cultures returned with Methicillin sensitive Staphylococcus aureus. The patient was taken for incision and drainage by Dr. Andrade. He tolerated this well. We will continue IV antibiotics for now. 2. Diabetes--Patient's blood sugars remain elevated. We will plan to initiate metformin at time of discharge. 3. Hypertension--Patient's blood pressure remains elevated. Lisinopril has been ordered, but patient has refused today. I have asked him to initiate that this evening. 4. Chronic right lower extremity deep venous thrombosis--This was noted per Doppler. We will resume Coumadin this evening. 5. Disposition--At this point, patient continues to require alf care in the hospital setting. We will plan discharge home once appropriate. cc: Rey Elizalde MD
[2019-05-30] MEDS: PRINIVIL PO SCH (22:47)
[2019-05-31] MEDS: NAFCIL 2 GM in NS 100 ML IV SCH ×3 (03:48→12:30)
[2019-05-31] MEDS: HUMALOG SUBQ SCH ×2 (06:42→11:12)
[2019-05-31 07:12] LABS: BASO# 0.04 X1000 (0.0-0.2); BASO% 0.6 % (0.0-0.8); EOS# 0.84 X1000 (0.0-0.7); EOS% 11.8 % (0.0-10.0); HEMOGLOBIN 12.6 g/dL (14.0-18.0); IMM GRAN# 0.05 X1000 (0.0-0.04); IMM GRAN% 0.7 % (0.0-0.5); LYMPH# 1.43 X1000 (1.2-3.4); LYMPH% 20.1 % (20.5-51.1); MCH 27.6 PG (27-31); MCHC 33.2 g/dL (33-37); MCV 83.2 FL (81-99); MONO# 0.86 X1000 (0.11-0.59); MONO% 12.1 % (1.7-9.3); MPV 10.6 FL (7.4-10.4); NEUT# 3.91 X1000 (1.4-6.5); NEUT% 54.7 % (42.2-75.2); PLT 311 X1000 (130-400); RBC 4.57 XMIL (4.7-6.1); RDW 13.6 % (11.5-14.5); WBC 7.13 X1000 (4.8-10.8)
[2019-05-31 07:30] LABS: AGAP 12; ALBUMIN 3.1 g/dL (3.5-5.0); ALKALINE PHOSPHATASE 80 U/L (32-122); BUN 10 mg/dL (8-22); CHLORIDE 104 mmol/L (98-107); COSMO 275; CREATININE 0.8 mg/dL (0.7-1.2); ESTIMATED GFR > 60; GLUCOSE 210 mg/dL (70-104); GOT 18 U/L (10-34); GPT 26 U/L (10-44); POTASSIUM 4.8 mmol/L (3.5-5.1); SODIUM 135 mmol/L (136-145); TCO2 19 mmol/L (25-35); TOTAL BILIRUBIN 0.38 mg/dL (0.20-1.00); TOTAL PROTEIN 6.1 g/dL (6.3-8.3)
[2019-05-31 07:32] LABS: INR 1.4; PROTIME 17.5 Seconds (11.0-16.0)
[2019-05-31] MEDS: PERIDEX MT SCH (10:14)
[2019-05-31] MEDS: TYLENOL PO PRN (14:03)
[2019-05-31] MEDS ORDERED: KEFLEX PO SCH (15:00)
[2019-05-31] MEDS: HYDROCORTISONE 0.5% CREAM TOP PRN (15:08)
[2019-05-31 15:56] VITALS: BP 143/85
--- NOTE | 2019-05-31 16:35 | PROGRESS NOTE ---
DATE: 05/31/2019 SUBJECTIVE: Mr. Mando Escalera is now postop day 1 from incision and drainage of soft tissue abscess, posterior right leg. The wound was packed open. OBJECTIVE: I removed the packing today. The wound appears to be clean. Clinically his legs improving with less redness and swelling. DISPOSITION: I discussed wound care with him. He is to remain out of work a week after discharge. One see him back in our offices not this coming Monday but the next Monday. cc: MD Rey Gastelum MD
--- NOTE | 2019-05-31 21:39 | DISCHARGE SUMMARY ---
ADMISSION DATE: 05/25/2019 DISCHARGE DATE: 05/31/2019 ADMISSION DIAGNOSIS: Right lower extremity edema and pain. DISCHARGE DIAGNOSES: 1. Right lower extremity cellulitis with associated abscess formation. 2. New onset diabetes. 3. Hypertension, newly diagnosed. 4. Chronic lower extremity deep venous thrombosis. CONSULTATIONS: 1. Dr. Payne with Infectious Diseases was consulted for further evaluation and management of persistent cellulitis. 2. Dr. Andrade with General Surgery was consulted for further evaluation and management of right lower extremity abscess. PROCEDURES: 1. A lower extremity venous Doppler was performed on 05/25/2019 which revealed chronic appearing clot in the mid distal superficial femoral vein with flow noted around it. There appears to be no other acute abnormalities noted. 2. Lower extremity CT scan was performed on 05/25/2019 which revealed edema of the subcutaneous tissues and the medial gastrocnemius head. This indicates cellulitis and possibly pyomyositis. No abscess or soft tissue gas. No fractures. Severe osteoarthritis of the left knee. 1. MRI of the right lower extremity was performed on 05/29/2019 which revealed superficial subcutaneous abscess in the proximal medial posterior right lower leg just below the knee. Myositis of the medial head of the gastrocnemius. No intramuscular collections. 2. Incision and drainage of the soft tissue abscess right posterior leg with debridement of infected and necrotic tissue including skin and subcutaneous tissue was performed on 05/30/[address] Andrade . HISTORY AND PHYSICAL EXAMINATION: See admit note. PHYSICAL EXAMINATION PRIOR TO DISCHARGE: Temperature 97.9 degrees, heart rate 54, respirations 16, blood pressure is 143/85. General: Well nourished, well developed, no acute distress. Cardiovascular: Regular rate and rhythm. No significant murmurs, rubs, or gallops. Pulmonary: Clear to auscultation bilaterally. Abdomen: Soft, nontender, nondistended. Positive bowel sounds. Extremities: Moves all extremities well. Bilateral lower extremity venous stasis changes. No significant clubbing, cyanosis or edema. Dermatologic: Evaluation reveals a dressed right calf with improving erythema and induration to the right lower extremity. Significant desquamation of skin is noted. LABORATORY DATA: Prior to discharge. White blood cell count 7.13, hemoglobin 12.6, hematocrit 38.0, platelet count 311,000, PT 17.5, INR is 1.40. Sodium 135, potassium 4.8, chloride 104, bicarb 19, BUN 10, creatinine 0.8, glucose 210, calcium 8.0, total bilirubin 0.38, total protein 6.1, albumin 3.1, alkaline phosphatase 80, AST 18, ALT 26. HOSPITAL COURSE: Patient was admitted as per history and physical examination. Hospital course per condition is as follows. 1. Right lower extremity cellulitis with associated abscess formation-upon admission, patient was noted to have a severe cellulitis to the right lower extremity. CT scan did not demonstrate evidence of fluid collection. The patient was treated with broad-spectrum IV antibiotics. Wound culture was performed ultimately revealing MSSA. The patient was converted to nafcillin therapy. Unfortunately, despite antibiotic intervention, patient continued to have considerable pain. MRI was performed as described above. This revealed an underlying abscess. Dr. Andrade was consulted. The patient was taken for surgical intervention on 05/30/2019. Patient tolerated this quite well. On the day of discharge patient states his pain was controlled. He was afebrile. White count was within normal limits. The patient will complete 14 additional days of Keflex therapy. Postoperative wound care will be per Dr. Andrade's discretion. 2. Diabetes-the patient was diagnosed with new onset diabetes while hospitalized. The patient was covered with sliding scale insulin. The patient will be started on metformin therapy at discharge, titrate up to 500 mg twice daily. We will plan to reevaluate patient as an outpatient. 3. Hypertension-patient's blood pressure remained marginally elevated throughout hospitalization. Time of discharge, patient will be started on lisinopril therapy. We will ask patient to keep a log of his blood pressure between now and next visit. 4. Chronic lower extremity deep venous thrombosis-patient has a history of recurrent deep venous thrombosis. Lower extremity Doppler revealed no evidence of acute disease, however chronic clot was identified. The patient was continued on Coumadin therapy while hospitalized. Prior to surgery, this was held for 1 day. A small dose of vitamin K was provided. Coumadin therapy was resumed on the night prior to discharge. Patient will continue this as an outpatient. We will plan to recheck PT and INR as an outpatient. DISCHARGE CONDITION: Good. DISPOSITION: Discharge to home. MEDICATIONS: 1. Hydrocortisone cream applied twice daily as needed. 2. Keflex 500 mg every 8 hours for 14 days. 3. Lisinopril 5 mg at bedtime. 4. Acetaminophen 650 mg every 6 hours as needed. 5. Metformin ER 500 mg twice daily. 6. Coumadin 5 mg at bedtime and 7.5 mg on Sundays. FOLLOWUP: Patient is to follow with me in approximately 3-4 days. Patient is to follow up with Dr. Andrade in 10 days. cc: Rey Elizalde MD
== END 2019-05-31 18:20 | disposition home or self-care (01) | DRG 580 ==
LOC: ED 14:32 → 4N 22:39 → SUATTDRO 22:39
PROVIDERS: ADMIT Internal Medicine; ATTEND Internal Medicine